=== PATIENT | female | born 1960 | race Caucasian/White ===

== ENCOUNTER 2024-02-19 13:41 | Emergency (ER) | payer MEDICAID, SELFPAY ==
--- NOTE | ~2024-02-19 | CT_ITS ---
EXAMINATION: CT ANGIOGRAM NECK CT ANGIOGRAM BRAIN. CLINICAL INFORMATION: Left facial droop since last night. COMPARISON: None available. TECHNIQUE: Contiguous axial images through the brain using 5 mm collimation without the IV contrast administration. Sagittal and coronal reformatted images acquired. Contiguous axial images from the thoracic aortic arch to the cranial vertex using 0.6 mm collimation following the IV contrast, during the arterial phase. Sagittal and coronal reformatted images acquired. Maximum intensity projections. Total of 70 cc Omnipaque 350 strength given IV without reported immediate complications. The degree of stenosis determined by NASCET criteria. This CT examination was performed using dose optimization techniques as appropriate, variously including the following: *Automated exposure control *Adjustment of mA and/or kV according to patient size (this includes techniques or standardized protocols for targeted exams where dose is matched to indication/reason for exam; i.e. extremities or head) *Use of iterative reconstruction technique DLP: 2122 mGy-cm FINDINGS: CT angiogram neck: Thoracic aorta: No fully depicted. Right CCA: Normal patency. No focal stenosis. No intimal flap. Calcified plaques in the distal segment. Right ICA: Normal patency. Calcified plaque in the proximal segment representing 20% narrowed lumen. No intimal flap. Tortuosity near the skull base. Left CCA: Normal patency. No focal stenosis. No intimal flap. Left ICA: Calcified plaques in the proximal segment and carotid bulb without stenosis. No intimal flap. Tortuosity. V 1/V2 segments: No focal stenosis or intimal flap. Right vertebral artery is dominant CT angiogram brain: Anterior cerebral circulation: ICAs: Calcified plaques in the cavernous segments. No focal stenosis or intimal flap. No abrupt cut off. MCA's: Normal patency. No focal stenosis. No abrupt cut off. Bifurcation/trifurcation demonstrated normal patency without focal stenosis or abrupt cut off or contour irregularity ACAs: Normal patency. No focal stenosis. No abrupt cut off. The ophthalmic arteries are patent. The anterior communicant artery is patent. The left posterior communicating artery is patent. Posterior cerebral circulation: V3/V4 segments: Normal patency. No focal stenosis or intimal flap. The posterior inferior cerebellar arteries are patent and likely orientating extradural compartment. The anterior inferior cerebellar arteries are patent. Basilar artery is patent without focal stenosis or intimal flap. Superior cerebellar arteries are patent. 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 No focal stenosis. No abrupt cut off. Noncontrast CT brain: No acute intracranial hemorrhage, mass effect, midline shift, hydrocephalus or herniation. Bilateral multifocal patchy and confluent deep periventricular white matter hypodensities involving centrum semiovale and pop radiata. Posterior cranial fossa contents demonstrated no acute intracranial hemorrhage or mass effect. Sellar/suprasellar region demonstrated no gross masses or hemorrhage. The main cerebral venous sinuses are patent. Ancillary findings: 12 mm hypodense nodule, left thyroid lobe. Mucosal thickening and air-fluid levels in the maxillary sinuses. Fluid density within the right mastoid antrum and aditus at antrum and right mastoid air cells. Multilevel cervical thoracic spondylosis.. CT/CT angio head neck IMPRESSION: No main cerebral artery occlusion or embolus or cerebral aneurysm. No high degree stenosis or dissection in the vessels of the neck. Calcified plaques in the carotid bulbs. No acute intracranial hemorrhage. Small vessel occlusive disease. Superimposed acute nonhemorrhagic stroke/ischemia cannot be excluded. If patient's symptoms persist consider MRI brain. Electronically signed by: Angel Perez MD 02/19/2024 03:53 PM EST
[2024-02-19 13:43] VITALS: BP 168/81; PULSE 86; RESP 16; TEMP 36.7; O2SAT 97; BMI 31.8
--- NOTE | 2024-02-19 13:43 | ED.GENADULT ---
[facility] - General Adult General Chief complaint: Neuro Symptoms/Deficit Stated complaint: facial droop Time Seen by Provider: 02/19/24 14:08 Source: patient Mode of arrival: ambulatory History of Present Illness ED Provider: Cyndee [facility] narrative: 63-year-old female with history of diabetes and hypertension comes in with onset of facial droop since last night and states that she knows when she tried to drink liquids that it was running out of the side of her mouth, she also reports feeling an odd sensation in her left eye for approximately 2 days and reports that symptoms originally started on Thursday when she felt some pain within her ear and it felt like her left eye was irritated she denies any rashes, fevers, chills. Related Data Previous Rx's ?Medication ?Instructions ?Recorded prednisone 20 mg tablet 60 mg (3 x 20 mg) PO DAILY 6 days 02/19/24 #18 tabs valacyclovir 1 gram tablet 1,000 mg PO TID 6 days #18 tabs 02/19/24 Allergies Allergy/AdvReac Type Severity Reaction Status Date / Time penicillin V Allergy Unknown Unknown Verified 02/19/24 13:48 valsartan [Diovan] Allergy Unknown Unknown Verified 02/19/24 13:48 Review of Systems Review of Systems: Pertinent positives and negatives as stated in [facility] Social History Social History Smoked in Last 30 Days: No Use of substances other than those prescribed or required for medical reasons: No Advance Directives: No Advance Directives Information Provided: Yes Do you have a plan to hurt others: No Plan Physical Exam ED Vital Signs: Vital Signs - 24 hr 02/19/24 13:43 02/19/24 14:07 02/19/24 16:12 Temperature 98.1 F 99.2 F Pulse Rate 86 87 76 Respiratory Rate 16 16 18 Blood Pressure 168/81 H 189/93 H 184/90 H Pulse Oximetry 97 97 96 Oxygen Delivery Method Room Air Room Air Room Air BMI result Body Mass Index 31.8 VITAL SIGNS: Reviewed. GENERAL: Well developed, well nourished, in no acute distress. HEAD: Normocephalic/atraumatic EYES: PERRLA, EOMI, obvious weakness in left eyelids as she is unable to squeeze LEFT eye completely shut when compared to the right EARS: Ext canals without abnormality, TMs non-bulging and non-erythematous, NO vesicular lesions noted NOSE: Nares patent bilateral, no vesicular lesions noted OROPHARYNX: no oral lesions noted, posterior pharynx clear NECK: Supple, no adenopathy LUNGS: Normal breath sounds. No adventitious sounds or accessory muscle use. SpO2<97> CARDIOVASCULAR: Regular rate and rhythm without noted murmurs ABDOMEN: Soft, non-tender, non-distended with bowel sounds. MUSCULOSKELETAL: No tenderness, deformities, or effusions noted on gross inspection. EXTREMITIES: No cyanosis, clubbing or edema. SKIN: Inspection of the skin reveals no rashes NEUROLOGIC: Alert and oriented x 4. Strength and sensation to light touch were grossly intact x 4LEFT mouth corner droop, weakened LEFT eyebrow raise when compared to RIGHT, unable to fully appreciate loss of wrinkles in LEFT forehead. Course Course Course Narrative: Patient is a 63-year-old female with past medical history of hypertension, diabetes presenting to emergency department for evaluation. She reports approximately 2 days ago she was having excessive watering to her left eye and a fullness sensation that she noted in her left ear without any pain or drainage. Last night when she was drinking round approximately 20:00 she felt water was dribbling out of her mouth. She went to bed. Upon awakening today felt as though she was unable to rinse her mouth after brushing the teeth he has water was pouring out of her mouth. She reports that her sister had been advising that she should come to the emergency department but did not listen until now. Exam: Left external ear canal is clear from no lesions or vesicles, unable to fully close left eye, weakness eyebrow raise, asymmetrical forehead wrinkling weakness on the left but not complete loss of her ankles, drooping of the corner of the left mouth under neurological examination without deficits. 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 There are no other focal findings than just the facial deficits. I reviewed and interpreted all investigations and there is no evidence of acute infection, anemia, with there is a noted borderline low platelet count. Transaminases are noted to be mildly elevated, patient has no abdominal pain or infectious symptoms that would otherwise suggest acute cholecystitis/choledocholithiasis/hepatitis. CT scans are negative for acute abnormalities and history in conjunction with clinical exam most consistent with Mariano's palsy and patient received 1st dose of valacyclovir and prednisone here in the emergency room and remaining course was prescribed. Differential Diagnosis Differential Diagnoses: The differential diagnosis associated with the presentation includes See above Admission/Observation Consideration of admission/observation: Escalation of care including admission/observation considered See above Lab Data MDM Lab Attestation statement: I reviewed the patient's lab results. See above 02/19/24 14:18 02/19/24 14:18 Labs: Lab Results 02/19/24 Range/Units 14:18 WBC 6.4 (4.8-10.8) X10*3/uL RBC 3.91 L (4.20-5.50) X10*6/uL Hgb 12.8 (12.0-16.0) g/dl Hct 37.7 (37.0-47.0) % MCV 96.4 (80.0-98.0) fL MCH 32.7 (27.0-33.0) pg MCHC 34.0 (31.0-35.0) g/dl RDW 11.4 (11.0-16.0) % Plt Count 157 L (160-400) X10*3/uL MPV 11.0 (9.4-12.3) fL Immature Gran % (Auto) 0.5 H (0.0-0.4) % Neut % (Auto) 61.3 (45-73) % Lymph % (Auto) 24.3 (20-40) % [place] % (Auto) 8.4 (2-11) % Eos % (Auto) 4.7 H (0-4) % Baso % (Auto) 0.8 (0-2) % Lymph # (Auto) 1.6 (1.2-4.9) X10*3/uL [place] # (Auto) 0.5 (0.1-1.2) X10*3/uL Eos # (Auto) 0.3 (0.0-0.4) X10*3/uL Baso # (Auto) 0.1 (0.0-0.2) X10*3/uL Abs Immat Gran (auto) 0.03 (0.00-0.03) X10*3/uL Absolute Neuts (auto) 3.9 (2.0-8.3) x10*3/uL Absolute Nucleated RBC 0.000 (0.0-0.012) X10*3/uL Nucleated RBC % (auto) 0.0 (0.0-0.2) /100WBC Sodium 134 L (135-145) mmol/L Potassium 3.8 (3.3-5.1) mmol/L Chloride 101 (96-108) mmol/L Carbon Dioxide 29 (22-29) mmol/L Anion Gap 8 L (12-20) BUN 10 (9-16) mg/dL Creatinine 0.76 (0.5-1.4) mg/dL Estim Creat Clear Calc 69.9 Estimated GFR > 60 Random Glucose 309 H (60-115) mg/dL Calcium 8.6 (8.4-10.2) mg/dL Total Bilirubin 1.0 (0.0-1.0) mg/dL AST 60 H (5-31) U/L ALT 59 H (0-31) U/L Alkaline Phosphatase 193 H (39-117) U/L Total Protein 7.1 (6.5-8.0) g/dL Albumin 3.5 (3.5-5.0) g/dL Radiology Impression Discussion of test interpretation with radiology: I have reviewed the radiologist's reading. Radiologist Impression: See above Chronic Conditions Patient?s care impacted by: Diabetes and Hypertension Discharge Plan Discharge Clinical Impression: Mariano's palsy Patient Disposition: Home, Self-Care Instructions: Mariano Palsy (ED) Additional Instructions: Eye protection: Artificial tears every hour while awake, ophthalmic ointment at night, tape your eye shut at night, wear protective glasses during the day to protect from sun and particles. Complete the entire course of steroids as prescribed. Do not forget that steroids will increase your sugar, increase your blood pressure, and increased acid production. Complete the entire course of antiviral medication as prescribed. Follow-up with your primary care doctor in the next 1-2 days for re-evaluation further outpatient management. Prescriptions: New valacyclovir 1 gram tablet 1,000 mg PO TID 6 Days Qty: 18 0RF prednisone 20 mg tablet 60 mg PO DAILY 6 Days Qty: 18 0RF Referrals: Ruby Patino PA-C [Primary Care Provider] - Print Language: Greek
[2024-02-19 14:07] VITALS: BP 189/93; PULSE 87; RESP 16; TEMP 37.3; O2SAT 97
[2024-02-19 14:22] LABS: MANUAL DIFF FLAG NO
[2024-02-19 14:25] LABS: Basophils Absolute Auto 0.1 X10*3/uL (0.0-0.2); Basophils Percent Auto 0.8 % (0-2); Eosinophils Absolute Auto 0.3 X10*3/uL (0.0-0.4); Eosinophils Percent Auto 4.7 % (0-4); Hematocrit 37.7 % (37.0-47.0); Hemoglobin 12.8 g/dl (12.0-16.0); Imm Gran Abs Auto 0.03 X10*3/uL (0.00-0.03); Imm Gran Pct Auto 0.5 % (0.0-0.4); Lymphocytes Absolute Auto 1.6 X10*3/uL (1.2-4.9); Lymphocytes Percent Auto 24.3 % (20-40); Mean Corpuscular Hemoglobin 32.7 pg (27.0-33.0); Mean Corpuscular Volume 96.4 fL (80.0-98.0); Monocytes Absolute Auto 0.5 X10*3/uL (0.1-1.2); Monocytes Percent Auto 8.4 % (2-11); Neutrophils Absolute Auto 3.9 x10*3/uL (2.0-8.3); Neutrophils Percent Auto 61.3 % (45-73); Platelet Count 157 X10*3/uL (160-400); Red Blood Count 3.91 X10*6/uL (4.20-5.50); Red Cell Distribution Width 11.4 % (11.0-16.0); White Blood Count 6.4 X10*3/uL (4.8-10.8)
[2024-02-19 14:37] LABS: Alanine Aminotransferase 59 U/L (0-31); Albumin Level 3.5 g/dL (3.5-5.0); Alkaline Phosphatase 193 U/L (39-117); Anion Gap 8 (12-20); Aspartate Amino Transferase 60 U/L (5-31); Blood Urea Nitrogen 10 mg/dL (9-16); Calcium 8.6 mg/dL (8.4-10.2); Carbon Dioxide 29 mmol/L (22-29); Chloride 101 mmol/L (96-108); Creatinine Clr Calc Pharmacy 69.9; Estimated Glomerular Filt Rate > 60; Glucose Random 309 mg/dL (60-115); Potassium 3.8 mmol/L (3.3-5.1); Sodium 134 mmol/L (135-145); Total Protein 7.1 g/dL (6.5-8.0)
[2024-02-19] MEDS: iohexoL 350 MG/ML 100 ML INFUS..BTL 70 ML IV (15:05)
[2024-02-19 16:12] VITALS: BP 184/90; PULSE 76; RESP 18; O2SAT 96
[2024-02-19] MEDS: predniSONE 20 MG TABLET 60 MG PO (17:09)
[2024-02-19] MEDS: valACYclovir HCL 1,000 MG TABLET 1000 MG PO (17:09)
[2024-02-19 17:20] VITALS: BP 177/88; PULSE 73; RESP 18; TEMP 36.8; O2SAT 95
== END 2024-02-19 17:22 | disposition home or self-care (01) ==
PROVIDERS: Emergency Provider Student in an Organized Health Care Education/Training Program; PCP Physician Assistant
DX: G51.0 Bell's palsy (principal); R29.810 Facial weakness; E11.9 Type 2 diabetes mellitus without complications; I10 Essential (primary) hypertension; H92.09 Otalgia, unspecified ear
CPT/HCPCS: 36415; 70496; 70498; 80053; 85025; 99284; Q9967

== ENCOUNTER 2024-05-18 10:23 | Emergency (ER) | payer MEDICAID, SELFPAY ==
--- NOTE | ~2024-05-18 | XR_ITS ---
EXAMINATION: XR CHEST CLINICAL INFORMATION: cough COMPARISON: None available. TECHNIQUE: Frontal view of the chest was obtained. FINDINGS: No significant abnormality is noted involving the heart, lungs, mediastinum, bony thorax or soft tissues. XR/XR chest 1V IMPRESSION: Unremarkable chest exam . Electronically signed by: Rowdy Wild MD 05/18/2024 11:43 AM [facility] [place]
[2024-05-18 10:39] VITALS: BP 136/73; PULSE 96; RESP 20; TEMP 37; O2SAT 97; BMI 31.0
[2024-05-18 11:43] LABS: Influenza A PCR NEGATIVE (Negative); Influenza B PCR NEGATIVE (Negative); Resp Syncy Virus RNA Qual PCR NEGATIVE (Negative); SARS COV2 PCR INHOUSE NEGATIVE (Negative)
--- NOTE | 2024-05-18 17:36 | ED_ITS ---
HPI - URI/Sore Throat General Chief Complaint: Upper Respiratory Symptoms Stated Complaint: Cough Diff Breathing Time Seen by Provider: 05/18/24 17:31 Source: patient and RN notes reviewed Mode of arrival: ambulatory Limitations: no limitations History of Present Illness ED Provider: Olena Vera PA-C HPI Narrative: This is a 63-year-old female, with a history of asthma, type 2 diabetes, and hypertension, who presents emergency department with ongoing nonproductive cough and wheezing for the last 2 weeks. She states that she has had intermittent chills. No known fevers. She reports chest pain only with coughing. She denies chest pain at rest. She denies any palpitations. She denies any abdominal pain, nausea, vomiting or diarrhea. Denies any pleuritic chest pain. She has been taking [id number] cold and cough medications as well as using her albuterol inhaler at home which has provided her with minimal relief. Denies any sick contacts. No other complaints or concerns at this time. MD elicited complaint: cough Pertinent past history: asthma Onset (ago): week(s) Consistency: constant Severity: moderate Able to tolerate fluids by mouth: Yes Exacerbating factors: nothing Relieving factors: nothing Associated symptoms: chills and cough Treatments prior to arrival: none Related Data Previous Rx's ?Medication ?Instructions ?Recorded prednisone 20 mg tablet 60 mg (3 x 20 mg) PO DAILY 6 days 02/19/24 #18 tabs valacyclovir 1 gram tablet 1,000 mg PO TID 6 days #18 tabs 02/19/24 azithromycin 250 mg tablet 250 mg PO DAILY 4 days #4 tabs 05/18/24 doxycycline hyclate 100 mg capsule 100 mg PO BID 7 days #14 caps 05/18/24 Allergies Allergy/AdvReac Type Severity Reaction Status Date / Time penicillin V Allergy Unknown Unknown Verified 05/18/24 10:42 valsartan [Diovan] Allergy Unknown Unknown Verified 05/18/24 10:42 Review of Systems Review of Systems: Yes all other systems are reviewed and are negative Constitutional: Constitutional: Reports as per [facility] Social History Social History Advance Directives: No Advance Directives Information Provided: No Do you have a plan to hurt others: No Plan Physical Exam Vital Signs: Vital Signs: Last Vital Signs Temp 98.6 F 05/18/24 10:39 Pulse 85 05/18/24 18:02 Resp 18 05/18/24 18:02 BP 136/73 05/18/24 10:39 Pulse Ox 97 05/18/24 10:39 O2 Del Method Room Air 05/18/24 10:39 BMI result Body Mass Index 31.0 Const: General: cooperative, comfortable and no acute distress Orientation/consciousness: patient oriented x3 Limitations: no limitations HEENT: Head: Yes normal to inspection, Yes normocephalic and Yes atraumatic Ears: hearing grossly normal bilaterally General nose exam: Normal external nose present Face and sinus: Yes normal facial exam Mouth: Normal oral and palatal mucosa present, oropharynx normal and moist mucous membranes Throat: Yes posterior oropharynx normal Eyes: General: appearance normal, both eyes and all related structures Eyelids: Yes eyelids normal Conjunctivae: conjunctivae normal Sclerae: sclerae normal Pupils: Equal, round and reactive pupils present EOM: EOMs intact bilaterally Neck: Neck: Yes normal visual inspection, Yes full ROM and Yes no lymphadenopathy Lymphatic: no lymphadenopathy noted Chest: Chest palpation & inspection: normal inspection of the chest Resp: Effort & Inspection: normal respiratory effort and able to speak in complete sentences Auscultation: clear to auscultation bilaterally, no crackles, no rales, no rhonchi and no wheezes Cardio: Rate: regular rate Rhythm: regular rhythm Heart sounds: S1 normal heart sound present and S2 normal heart sound present GI: Inspection: Yes normal to inspection Skin: General skin exam: no rashes or lesions noted Trauma: no lacerations or abrasions Wounds: no wounds Neuro: General: patient oriented x3 and moves all extremities Cranial nerves: Yes Equal, round and reactive pupils present Extrem: General: Yes normal to inspection Right upper extremity: normal to inspection Left upper extremity: normal to inspection Right lower extremity: normal to inspection Left lower extremity: normal to inspection Course Reevaluation(s) Reevaluation #1: Lung sounds improved after receiving updraft. Will treat with Zithromax and doxycycline. Will discharged on prednisone as well. Given strict return precautions. Patient stable for discharge. Time: 18:23 Medications Administered Discontinued Medications Generic Name Dose Route Start Last Admin Trade Name Freq PRN Reason Stop Dose Admin Albuterol Sulfate 2.5 mg/ 0 mg 05/18/24 18:00 05/18/24 18:02 Albuterol/Ipratropium 3 ml INHALE 05/18/24 18:01 1 dose ONCE ONE Administration Prednisone 50 mg 05/18/24 17:36 05/18/24 17:56 Prednisone 10 Mg Tablet PO 05/18/24 17:37 50 mg ONCE ONE Administration Medical Decision Making Medical Decision Making [facility] Narrative: This is a 63-year-old female who presents emergency department with concerns for cold and cough x2 weeks. On arrival, vital signs within normal limits. She is speaking in full sentences. Lungs with inspiratory and expiratory wheezes noted throughout all lung caputo. She is speaking in full sentences however frequent nonproductive cough heard. Chest x-ray as well as viral swabs were obtained revealing no flu, COVID or RSV. Chest x-ray does not show a pneumonia. Given lung sounds, will treat with ED bronch protocol as well as prednisone. We will also start patient on antibiotics given duration of symptoms. We will continue to monitor pending symptomatic improvement after updraft. She is not hypoxic, and speaking in full sentences. Differential Diagnosis Differential Diagnoses: The differential diagnosis associated with the presentation includes URI, asthma, pneumonia, RSV, flu Admission/Observation Consideration of admission/observation: Escalation of care including admission/observation considered Lab Data [facility] Lab Attestation statement: I reviewed the patient's lab results. Negative flu, RSV, COVID Labs: Lab Results 05/18/24 Range/Units 10:57 Influenza Type A (PCR) NEGATIVE (Negative) Influenza Type B (PCR) NEGATIVE (Negative) RSV RNA Qual (PCR) NEGATIVE (Negative) SARS-CoV-2 RNA (RT-PCR) NEGATIVE (Negative) Radiology Impression Discussion of test interpretation with radiology: I have reviewed the radiologist's reading. Radiologist Impression: XR/XR chest 1V IMPRESSION: Unremarkable chest exam . Electronically signed by: Rowdy Wild MD 05/18/2024 11:43 AM [facility] Dictated By: Rowdy Wild MD Discharge Plan Discharge Clinical Impression: Upper respiratory infection Patient Disposition: Still a Patient Instructions: Upper Respiratory Infection (ED) Additional Instructions: You were seen in the emergency department due to cough. You tested negative for COVID, flu and RSV. Your chest x-ray does not show a pneumonia. Given the duration of your symptoms, we are starting you on antibiotics, please take as prescribed. Doxycycline is to be taken twice a day. Azithromycin is to be taken once a day. Start this tomorrow as you already received your 1st doses today in the emergency department. I am also starting you on prednisone, you already received your 1st dose in the department today, please take as directed. Start this tomorrow. Drink plenty of fluids get plenty of rest. Continue using albuterol inhaler and updrafts at home for shortness of breath. Follow-up with your primary care physician regarding this visit. If any new or worsening symptoms occur including but not limited to worsening cough, congestion, chest pain, shortness of breath, please seek emergent care. Prescriptions: New doxycycline hyclate 100 mg capsule 100 mg PO BID 7 Days Qty: 14 0RF azithromycin 250 mg tablet 250 mg PO DAILY 4 Days Qty: 4 0RF Rx Instructions: start on day 2 of therapy No Action valacyclovir 1 gram tablet 1,000 mg PO TID 6 Days Qty: 18 0RF prednisone 20 mg tablet 60 mg PO DAILY 6 Days Qty: 18 0RF Print Language: Estonian
[2024-05-18] MEDS: predniSONE 10 MG TABLET 50 MG PO (17:56)
[2024-05-18 18:02] VITALS: PULSE 85; RESP 18; O2SAT 95
[2024-05-18] MEDS: Albuterol Sulfate 2.5 MG, Albuterol/Iprat 2.5/0.5MG 3 ML 3 ML INHALE (18:02)
[2024-05-18] MEDS: Doxycycline Monohydrate 100 MG CAPSULE PO (18:30)
[2024-05-18] MEDS: Azithromycin 500 MG TABLET PO (18:30)
[2024-05-18 18:42] VITALS: BP 139/89; PULSE 85; RESP 18; TEMP 36.9; O2SAT 98
== END 2024-05-18 18:43 | disposition home or self-care (01) ==
PROVIDERS: Emergency Provider Emergency Medicine
DX: J06.9 Acute upper respiratory infection, unspecified (principal); R05.9 Cough, unspecified; R07.89 Other chest pain; Z03.818 Encounter for observation for suspected exposure to other biological agents ruled out
CPT/HCPCS: 0241U; 71045; 94640; 99283; 99284

== ENCOUNTER → 2024-05-18 10:43 | Outpatient (BNV) | payer MEDICAID, SELFPAY | PROVIDERS: Visit Provider Radiology Diagnostic Radiology | DX: R05.9 Cough, unspecified (principal) | CPT/HCPCS: 71045 ==